=== PATIENT | male | born 1965 | race Caucasian/White ===

== ENCOUNTER → 2016-04-02 | Outpatient (CLI) | payer BC ==
[~2016-04-02] MED LIST: SODIUM CHLORIDE 0.9% 250 ML in EMPTY BAG 1 BAG IV PRN; SODIUM CHLORIDE 0.9% 500 ML in EMPTY BAG 1 BAG IV PRN
[2016-04-02 07:48] VITALS: TEMP 97.9
[2016-04-02 09:44] VITALS: BP 142/89; PULSE 69; RESP 16
== END | disposition home or self-care (01) ==
LOC: PROCWHC3 07:10
PROVIDERS: ATTEND Internal Medicine Gastroenterology
DX: K51.90 Ulcerative colitis, unspecified, without complications (principal)
CPT/HCPCS: 96361; 96413; 96415; J1745

== ENCOUNTER → 2016-05-28 | Outpatient (CLI) | payer BC ==
[2016-05-28 07:20] VITALS: RESP 18; TEMP 98.1
[2016-05-28 08:52] VITALS: BP 133/95; PULSE 70
== END | disposition home or self-care (01) ==
LOC: PROCWHC3 07:01
PROVIDERS: ATTEND Physician Assistant
DX: K51.90 Ulcerative colitis, unspecified, without complications (principal)
CPT/HCPCS: 96361; 96413; 96415; J1745

== ENCOUNTER → 2016-07-28 | Outpatient (CLI) | payer BC ==
[2016-07-28 07:21] VITALS: TEMP 97.5
[2016-07-28 08:38] VITALS: RESP 18
[2016-07-28 09:03] VITALS: BP 156/97; PULSE 70
== END | disposition home or self-care (01) ==
LOC: PROCWHC3 07:06
PROVIDERS: ATTEND Physician Assistant
DX: K51.90 Ulcerative colitis, unspecified, without complications (principal)
CPT/HCPCS: 96413; 96415; J1745

== ENCOUNTER → 2016-09-24 | Outpatient (CLI) | payer BC ==
[2016-09-24 07:26] VITALS: TEMP 97
[2016-09-24 08:24] VITALS: RESP 18
[2016-09-24 08:51] VITALS: BP 140/98; PULSE 64
== END | disposition home or self-care (01) ==
LOC: PROCWHC3 07:06
PROVIDERS: ATTEND Physician Assistant
DX: K51.90 Ulcerative colitis, unspecified, without complications (principal)
CPT/HCPCS: 96413; 96415; J1745

== ENCOUNTER → 2016-11-19 | Outpatient (CLI) | payer BC ==
[~2016-11-19] MED LIST changes: -SODIUM CHLORIDE 0.9% 250 ML in EMPTY BAG 1 BAG IV PRN
[2016-11-19 07:37] VITALS: TEMP 97.8
[2016-11-19 09:06] VITALS: BP 131/89; PULSE 71; RESP 14
== END | disposition home or self-care (01) ==
LOC: PROCWHC3 07:08
PROVIDERS: ATTEND Physician Assistant
DX: K51.90 Ulcerative colitis, unspecified, without complications (principal)
CPT/HCPCS: 96413; 96415; J1745